=== PATIENT | male | born 1985 | race African-American/Black ===

== ENCOUNTER 2023-03-16 17:10 | Emergency (ER) | payer MEDICAID ==
[~2023-03-16] VITALS: Ht 180.3 cm; Wt 128.8 kg
[2023-03-16 17:32] VITALS: BP_SYST 150; PULSE 91; RESP 18; TEMP 98.3; O2SAT 95
[2023-03-16] MEDS ORDERED: CEPH-548 PO (18:53)
[2023-03-16 19:00] VITALS: BP_SYST 150; PULSE 91; RESP 18; TEMP 98.3; O2SAT 95
== END 2023-03-16 19:00 | disposition home or self-care (01) ==
LOC: SED 17:10
DX: K13.0 Diseases of lips (principal)
CPT/HCPCS: 99283